=== PATIENT | female | born 1970 | race Two or more races ===

== ENCOUNTER 2017-11-16 09:44 | Emergency (ER) | payer MEDICAID ==
[~2017-11-16] VITALS: Ht 167.6 cm; Wt 62.0 kg
[2017-11-16] MEDS ORDERED: ONDANSETRON HCL 4MG/2ML VIAL IV STA (10:24)
[2017-11-16] MEDS ORDERED: MAGNESIUM/ALUMINUM HYDROXIDE/SIMETHICONE 30ML UDC PO STA (10:24)
[2017-11-16] MEDS ORDERED: DICYCLOMINE 10 MG/5 ML ORAL SYR PO STA (10:24)
[2017-11-16] MEDS ORDERED: VISCOUS LIDOCAINE 2% 15 ML UDC PO STA (10:24)
[2017-11-16] MEDS ORDERED: SODIUM CHLORIDE 0.9% 1,000 ML IV ONE (10:24)
[2017-11-16] MEDS ORDERED: FAMOTIDINE 20MG/2ML VIAL IV STA (10:24)
[2017-11-16] MEDS ORDERED: MORPHINE SULFATE 4 MG/ML CPJ (NOT FOR IM USE) IV STA (10:24)
[2017-11-16 10:30] LABS: CLARITY URINE CLEAR (CLEAR); COLOR URINE YELLOW (YELLOW); KETONES URINE NEGATIVE (NEGATIVE); LEUKOCYTE ESTERASE URINE NEGATIVE (NEGATIVE); NITRITE URINE NEGATIVE (NEGATIVE); OCCULT BLOOD URINE NEGATIVE (NEGATIVE); PH URINE 6.5 (4.5-8.0); PROTEIN URINE NEGATIVE (NEGATIVE)
[2017-11-16 10:59] LABS: BASOPHILS % 0.4 % (0.0-2.0); EOSINOPHILS % 3.6 % (0.0-5.0); HEMATOCRIT. 34.9 % (36.0-48.0); HEMOGLOBIN. 12.2 g/dL (12.0-16.0); LYMPHOCYTES % 18.7 % (20.0-50.0); MEAN CORPUSCULAR HEMOGLOBIN 32.2 pg (28.0-32.0); MEAN CORPUSCULAR VOLUME 92.1 fL (81.0-99.0); MEAN PLATELET VOLUME 6.8 fl (7.4-10.4); MONOCYTES % 9.5 % (2.0-8.0); NEUTROPHILS % 67.8 % (40.0-76.0); PLATELET 181 x1000/uL (130-400); RED BLOOD CELL COUNT 3.79 mill/uL (4.2-5.4); RED CELL DISTRIBUTION WIDTH 12.9 % (11.6-14.6)
[2017-11-16 11:02] LABS: CHLORIDE 107 mEq/L (98-107)
[2017-11-16 11:03] LABS: PROTHROMBIN TIME 10.5 sec (9.4-11.6)
[2017-11-16 11:12] VITALS: BP 103/51
== END 2017-11-16 13:31 | disposition home or self-care (01) ==
LOC: ER 10:27
DX: K51.90 Ulcerative colitis, unspecified, without complications (principal); I88.0 Nonspecific mesenteric lymphadenitis
CPT/HCPCS: 36415; 74176; 80053; 81003; 81025; 83690; 85025; 85610; 96361; 96374; 96375; 99285; J2270; J2405; J3490; J7030

== ENCOUNTER 2018-11-22 10:26 | Emergency (ER) | payer MEDICAID ==
[~2018-11-22] VITALS: Ht 170.2 cm; Wt 61.3 kg
[2018-11-22 13:35] LABS: BASOPHILS % 0.6 % (0.0-2.0); EOSINOPHILS % 2.5 % (0.0-5.0); HEMATOCRIT. 43.4 % (36.0-48.0); HEMOGLOBIN. 15.1 g/dL (12.0-16.0); MEAN CORPUSCULAR HEMOGLOBIN 33.1 pg (28.0-32.0); MEAN CORPUSCULAR VOLUME 95.1 fL (81.0-99.0); MEAN PLATELET VOLUME 7.4 fl (7.4-10.4); MONOCYTES % 5.7 % (2.0-8.0); NEUTROPHILS % 66.2 % (40.0-76.0); PLATELET 185 x1000/uL (130-400); RED BLOOD CELL COUNT 4.56 mill/uL (4.2-5.4); RED CELL DISTRIBUTION WIDTH 12.8 % (11.6-14.6)
[2018-11-22 13:37] LABS: CHLORIDE 107 mEq/L (98-107)
[2018-11-22 13:37] LABS: CLARITY URINE CLEAR (CLEAR); COLOR URINE YELLOW (YELLOW); KETONES URINE NEGATIVE (NEGATIVE); LEUKOCYTE ESTERASE URINE NEGATIVE (NEGATIVE); NITRITE URINE NEGATIVE (NEGATIVE); OCCULT BLOOD URINE NEGATIVE (NEGATIVE); PROTEIN URINE NEGATIVE (NEGATIVE); SPECIFIC GRAVITY URINE 1.021 (1.005-1.030)
[2018-11-22] MEDS ORDERED: IOHEXOL-300 100 ML BOTTLE ONE (15:37)
[2018-11-22 18:10] VITALS: BP 120/66
== END 2018-11-22 18:14 | disposition home or self-care (01) ==
LOC: ER 10:32
DX: R10.9 Unspecified abdominal pain (principal); K51.90 Ulcerative colitis, unspecified, without complications; F17.290 Nicotine dependence, other tobacco product, uncomplicated
CPT/HCPCS: 36415; 74177; 80053; 81003; 81025; 83690; 83880; 84484; 85025; 93005; 99284; Q9967

== ENCOUNTER 2023-01-30 10:39 | Emergency (ER) | payer MEDICAID ==
[~2023-01-30] VITALS: Ht 167.6 cm; Wt 56.7 kg
[2023-01-30 10:49] VITALS: BP 109/59; PULSE 82; RESP 16; TEMP 98.5; O2SAT 100
[2023-01-30] MEDS ORDERED: DIPH-1207 MT (10:52)
[2023-01-30] MEDS ORDERED: NAPR375T5 MT ×3 (10:52→10:57)
[2023-01-30] MEDS ORDERED: ACYC200C31 MT (10:52)
[2023-01-30] MEDS ORDERED: TOPUD MT ×3 (10:53→10:57)
== END 2023-01-30 11:21 | disposition home or self-care (01) ==
LOC: ER 10:39
DX: B02.9 Zoster without complications (principal)
CPT/HCPCS: 99283

== ENCOUNTER 2023-12-02 13:14 | Emergency (ER) | payer MEDICAID ==
[~2023-12-02] VITALS: Ht 167.6 cm; Wt 54.0 kg
[~2023-12-02 13:14] MED LIST: ACYC200C31 MT; DIPH-1207 MT; NAPR375T5 MT; TOPUD MT
[2023-12-02 13:17] VITALS: O2SAT 99
[2023-12-02] MEDS ORDERED: BENZ200C52 MT (14:39)
[2023-12-02] MEDS ORDERED: AMOX1TAB16 MT (16:04)
[2023-12-02] MEDS ORDERED: AZIT250T12 MT (16:04)
[2023-12-02 16:13] VITALS: BP 99/61; PULSE 78; RESP 17; TEMP 98.2
== END 2023-12-02 16:15 | disposition home or self-care (01) ==
LOC: ER 13:14
DX: J18.8 Other pneumonia, unspecified organism (principal); R05.1 Acute cough; K50.90 Crohn's disease, unspecified, without complications; Z20.822 Contact with and (suspected) exposure to COVID-19
CPT/HCPCS: 71045; 81025; 87426; 99284

== ENCOUNTER 2025-05-22 15:40 | Emergency (ER) | payer MEDICAID ==
[~2025-05-22] VITALS: Ht 167.6 cm; Wt 63.0 kg
[~2025-05-22 15:40] MED LIST changes: +ACYC-58 MT; -ACYC200C31 MT; +AMOX1TAB16 MT; +AZIT250T12 MT; +BENZ200C52 MT; +NAPR-1494 MT; -NAPR375T5 MT
[2025-05-22 15:48] VITALS: O2SAT 96
[2025-05-22] MEDS ORDERED: LOPE2CAP14 PO (19:33)
[2025-05-22 21:07] LABS: INFLUENZA TYPE A Presumptive Negative (Pres. Neg.); INFLUENZA TYPE B Presumptive Negative (Pres. Neg.)
[2025-05-22 21:30] VITALS: BP 110/54; PULSE 75; RESP 18; TEMP 36.9; O2SAT 97
== END 2025-05-22 21:36 | disposition home or self-care (01) ==
LOC: ER 15:40
DX: R05.9 Cough, unspecified (principal); R19.7 Diarrhea, unspecified; Z79.1 Long term (current) use of non-steroidal anti-inflammatories (NSAID); Z79.899 Other long term (current) drug therapy; Z20.822 Contact with and (suspected) exposure to COVID-19
CPT/HCPCS: 71045; 87426; 87804; 99284